=== PATIENT | female | born 2000 | race Caucasian/White ===

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

== ENCOUNTER 2020-01-23 19:26 | Emergency (ER) | payer OTHER, BC ==
[2020-01-23 19:55] VITALS: BP 107/77; PULSE 74; TEMP 98; BMI 27.4
--- NOTE | 2020-01-23 20:18 | PDOC ---
History of Present Illness - General Chief Complaint: Pain Stated Complaint: ABD PAIN Time Seen by Provider: 01/23/20 19:58 History Source: Patient - History of Present Illness Timing/Duration: reports: getting worse, intermittent Abdominal Pain Onset Location: reports: epigastric Pain Radiation: reports: no radiation Past History - Medical History Allergies/Adverse Reactions: Allergies Allergy/AdvReac Type Severity Reaction Status Date / Time No Known Allergies Allergy Verified 01/23/20 19:54 Home Medications: Ambulatory Orders Prenat 115/Iron Fum/Folic/Dss [ 19 Tablet] 1 tab PO DAILY 11/23/18 Nifedipine ER [Procardia Xl -] 30 mg PO DAILY #30 tab.er.24 12/10/18 Acetaminophen [Tylenol -] 1,000 mg PO Q6H #50 tablet 01/23/20 Ondansetron HCl [Zofran] 4 mg PO Q8H #12 tablet 01/23/20 Asthma: No Cancer: No Cardiac Disorders: No COPD: No Diabetes: No HTN: Yes (after delivery) Seizures: No Thyroid Disease: No - Reproductive History Is Patient Now?: No Therapeutic (s) & number: No - Immunization History Immunization Up to Date: Yes - Psycho-Social/Smoking History Smoking History: Never smoked Have you smoked in the past 12 months: No - Substance Abuse Hx (Audit-C & DAST Scrn) How often the patient has a drink containing alcohol: Never Score: In Men: 4 or > Positive; In Women: 3 or > Positive: 0 Screen Result (Pos requires Nsg. Audit-10AR): Negative Review of Systems - Review of Systems Constitutional: No: Chills, Fever ABD/GI: Yes: Nausea, Vomiting. No: Blood Streaked Bowels, Constipated, Diarrhea, Rectal Bleeding, Tarry Stools : No: Burning, Dysuria, Flank Pain *Physical Exam - Vital Signs Last Vital Signs Temp Pulse Resp BP Pulse Ox 98 F 74 18 107/77 98 01/23/20 19:50 01/23/20 19:50 01/23/20 19:50 01/23/20 19:50 01/23/20 19:50 - Physical Exam General Appearance: Yes: Appropriately Dressed. No: Apparent Distress HEENT: positive: Normal Voice Neck: positive: Supple Respiratory/Chest: negative: Respiratory Distress Gastrointestinal/Abdominal: positive: Normal Bowel Sounds, Tender (minimal ttp to epigastrium, no ttp to RUQ and no murpheys, no lower abd ttp), Soft. negative: Distended, Guarding, Rebound Musculoskeletal: negative: CVA Tenderness Integumentary: positive: Dry, Warm Neurologic: positive: Fully Oriented, Alert, Normal Mood/Affect Medical Decision Making - Medical Decision Making 01/23/20 20:15 19 yo F, here w/ ongoing epigastric pain. Pt reports intermittent epigastric pain x 5 months, ?brought on after eating greasy or fatty foods per pt, at times a/w n/v. Sxs lately episodes have been getting worse and re-occured yesterday. Did not seek medical care until yesterday when pt went to and was dx with "biliary colic". States she was not sent for US due to type of insurance she had so decided to come to ED. Not currently taking anything for pain. States she had "heartburn" during last but that current sxs does not feel similar to that. No change to BM, f/c or dysuria. No known h/o gallstones see exam Suspect gastritis/GERD vs biliary colic Exam only remarkable for mild ttp to epigastrium only -symptomatic control in ED -US -anticipate dc w/ GI referral 01/23/20 21:28 US read as multiple gallstones w/ slight contraction of GB....? physiologic vs chronic solis per report, no GBW edema or fluid. Pt remains well antonio and reports feeling better w/ meds. No sig ttp on rpt abd exam. Will dc w/ pain control and give very close surgery follow up. Strict return precautions given Discharge - Discharge Information Problems reviewed: Yes Clinical Impression/Diagnosis: Biliary colic Condition: Improved Disposition: HOME - Additional Discharge Information Prescriptions: Acetaminophen [Tylenol -] 1,000 mg PO Q6H #50 tablet Ondansetron HCl [Zofran] 4 mg PO Q8H #12 tablet - Follow up/Referral Referrals: Fili De Leon MD [Staff Physician] - - Patient Discharge Instructions Additional Instructions: Your ultrasound shows multiple gallstones which could be cause of chronic upper abd pain You need close follow up with surgery to discuses management Of pain acute worsens and/or you develop vomiting or fever, return to ED immediately Take tylenol as directed - Post Discharge Activity
[2020-01-23] MEDS ORDERED: ACETAMINOPHEN 500 MG TABLET (FP) PO ONE (20:19)
[2020-01-23] MEDS ORDERED: MAG HYDROX/AL HYDROX/SIMETH 30 ML UNIT-DOSE CUP PO ONE (20:19)
[2020-01-23] MEDS ORDERED: ONDANSETRON 4 MG TABLET PO ONE (20:19)
[2020-01-23] MEDS ORDERED: MAG HYDROX/AL HYDROX/SIMETH 30 ML UNIT-DOSE CUP ONE (20:26)
[2020-01-23] MEDS ORDERED: ACETAMINOPHEN 325 MG TABLET (FP) ONE (20:26)
[2020-01-23] MEDS ORDERED: ONDANSETRON *ODT* 4 MG TABLET ONE (20:26)
[2020-01-23 21:45] LABS: PH,URINE 5.5 (5.0-8.0); URINE APPEARANCE Clear; URINE BILIRUBIN Negative (NEGATIVE); URINE COLOR Yellow; URINE GLUCOSE (UA) Negative (NEGATIVE); URINE KETONE Negative (NEGATIVE); URINE LEUK ESTERASE Negative (NEGATIVE); URINE NITRITE Negative (NEGATIVE); URINE PROTEIN Negative (NEGATIVE); URINE UROBILINOGEN 0.2 mg/dL (0.2-1.0)
[2020-01-23 21:52] LABS: HCG,QUALITATIVE URINE Negative
[2020-01-23 23:43] LABS: URINE CRYSTALS CALCIUM OXALATE /hpf
[2020-01-23 23:49] LABS: EPI CELLS 13 /uL (0-25.1); HYALINE CASTS 2 /uL (0-3.1); URINE BACTERIA 217 /uL (0-1359); URINE WBC 26 /uL (0-25.8)
== END 2020-01-23 22:00 | disposition home or self-care (01) ==
LOC: JER 19:26
DX: K80.42 Calculus of bile duct with acute cholecystitis without obstruction (principal)
CPT/HCPCS: 76705-TC; 81003; 84703; 99284-25

== ENCOUNTER 2020-04-08 04:40 | Day surgery (SDC) | payer BC, OTHER ==
--- OUTSIDE RECORDS SUMMARY | 2020-03-31 08:25 | XMS ---
:2000 Author Organization [facility] Support Name Relationship Address Phone UE, UNEMPLOYED Unavailable Unavailable Unavailable UE Unavailable Unavailable Unavailable AUNTIE [place] [address] [place] [address] RAVI ARAIZA MOTHER [address] [place] [address] RAVI ARAIZA Mother [address] [place] [address] Re-disclosure Warning The records that you are about to access may contain information from federally- assisted alcohol or drug abuse programs. If such information is present, then the following federally mandated warning applies: This information has been disclosed to you from records protected by federal confidentiality rules (42 CFR part 2). The federal rules prohibit you from making any further disclosure of this information unless further disclosure is expressly permitted by the written consent of the person to whom it pertains or as otherwise permitted by 42 CFR part 2. A general authorization for the release of medical or other information is NOT sufficient for this purpose. The Federal rules restrict any use of the information to criminally investigate or prosecute any alcohol or drug abuse patient.The records that you are about to access may contain highly sensitive health information, the redisclosure of which is protected by Article 27-F of the [facility] Public Health law. If you continue you may haveaccess to information: Regarding HIV / AIDS; Provided by facilities licensed or operated by the [facility] Office of Mental Health; or Provided by the [facility] Office for People With Developmental Disabilities. If such information is present, then the following [facility] mandated warning applies: This information has been disclosed to you from confidential records which are protected by state law. State law prohibits you from making any further disclosure of this information without the specific written consent of the person to whom it pertains, or as otherwise permitted by law. Any unauthorized further disclosure in violation of state law may result in a fine or detention sentence or both. A general authorization for the release of medical or other information is NOT sufficient authorization for further disclosure. Insurance Providers Payer name Policy type Policy ID Covered Covered libertarian's Policy P andre / Coverage libertarian ID relationship to Garcia Inf ormation type garcia ROSALVA [id number] SP [id number] [facility] NON CAP OUT OF [id number] [facility]
[2020-04-07 11:10] VITALS: BMI 27.4
--- OUTSIDE RECORDS SUMMARY | 2020-04-08 04:42 | XMS ---
:2000 Author Organization [facility] Support Name Relationship Address Phone LUANN Unavailable Unavailable Unavailable UE, UNEMPLOYED Unavailable Unavailable Unavailable UE Unavailable Unavailable Unavailable AUNKATARZYNA [place] [address] RAY[place] [address] RAVI ARAIZA MOTHER [phone] [place] [address] RAVI ARAIZA Mother [address] [place] [address] Re-disclosure Warning The records that you are [...] is protected by Article 27-F of the [place] State Public Health law. If you continue you may haveaccess to information: Regarding HIV / AIDS; Provided by facilities licensed or operated by the [facility] Office of Mental Health; or Provided by the [facility] Office for People With Developmental Disabilities. If such information is present, then the following [facility] mandated warning applies: This information has been [...] law may result in a fine or alf sentence or both. A general authorization for the release of medical or other information is NOT sufficient authorization for further disclosure. Insurance Providers Payer name Policy type Policy ID Covered Covered green party's Policy P andre / Coverage green party ID relationship to Garcia Inf ormation type garcia ROSALVA [id number] SP [id number] HEALTH NON CAP BC OUT OF [id number] SP [id number] STATE BC OUT OF [id number] FA [id number] STATE Results ID Date Data Source [id number] 04/04/2020 08:50:00 AM EDT [facility] Name Value Range Interpretation Description Data Sup porting Code Source(s) Document(s ) SARS [facility] coronavirus 2 RNA This lab was ordered by [facility] and reported by [facility]. Procedure
[2020-04-08 08:26] LABS: HEMATOCRIT 39.9 % (32.4-45.2); MCH 24.4 pg (25.7-33.7); MCHC 32.5 g/dl (32.0-36.0); MEAN CELL VOLUME 75.1 fl (80-96); MEAN PLT VOLUME 8.9 fl (7.5-11.1); PLATELET COUNT 302 K/MM3 (134-434); RBC 5.31 M/mm3 (3.60-5.2); RDW 16.3 % (11.6-15.6); WHITE BLOOD COUNT 8.1 K/mm3 (4.0-10.0)
[2020-04-08 08:45] VITALS: BP 121/88; PULSE 74; TEMP 98.2
[2020-04-08 08:45] LABS: POTASSIUM 4.1 mmol/L (3.5-5.1)
[2020-04-08 08:47] LABS: CALCIUM 9.1 mg/dL (8.5-10.1)
[2020-04-08 08:48] LABS: ALBUMIN 3.9 g/dl (3.4-5.0); BLOOD UREA NITROGEN 9.1 mg/dL (7-18)
[2020-04-08 08:50] LABS: CREATININE 0.7 mg/dL (0.55-1.3)
[2020-04-08 08:52] LABS: BILIRUBIN,TOTAL 0.6 mg/dL (0.2-1); TOT PROT 7.8 g/dl (6.4-8.2)
--- NOTE | 2020-04-08 09:06 | HP ---
History & Physical Update - History History: No Change - Physical Physical: No Change - Assessment Assessment: No Change - Plan Plan: No Change (for lap solis possible open; r/b/t/a'sd/w the patient in the office and again today and informed consent obtained.)
== END 2020-04-08 09:50 | disposition home or self-care (01) ==
LOC: JASU-SURG 04:40
PROVIDERS: ATTEND Surgery
DX: Z53.8 Procedure and treatment not carried out for other reasons (principal)
CPT/HCPCS: 36415; 80053; 84702; 84703; 85027

== ENCOUNTER 2020-05-17 11:04 | Emergency (ER) | payer OTHER, BC ==
[2020-05-17 11:14] VITALS: BMI 24.7
[2020-05-17] MEDS ORDERED: SODIUM CHLORIDE 1,000 ML IV STA (12:08)
[2020-05-17 13:05] LABS: BASO % 0.3 % (0-2.0); EOS % 2.5 % (0-4.5); HEMATOCRIT 37.6 % (32.4-45.2); HEMOGLOBIN 12.1 GM/dL (10.7-15.3); LYMPH % 16.3 % (8-40); MCHC 32.2 g/dl (32.0-36.0); MEAN CELL VOLUME 74.6 fl (80-96); MEAN PLT VOLUME 8.6 fl (7.5-11.1); MONO % 5.1 % (3.8-10.2); NEUT % 75.8 % (42.8-82.8); PLATELET COUNT 327 K/MM3 (134-434); RBC 5.04 M/mm3 (3.60-5.2); WHITE BLOOD COUNT 10.8 K/mm3 (4.0-10.0)
[2020-05-17 13:14] LABS: EPI CELLS >36 /uL (0-25.1); HYALINE CASTS 4 /uL (0-3.1); URINE APPEARANCE CLOUDY; URINE BACTERIA 319 /uL (0-1359); URINE BILIRUBIN NEGATIVE (NEGATIVE); URINE COLOR YELLOW; URINE GLUCOSE (UA) NEGATIVE (NEGATIVE); URINE KETONE TRACE (NEGATIVE); URINE LEUK ESTERASE TRACE (NEGATIVE); URINE NITRITE NEGATIVE (NEGATIVE); URINE PROTEIN 1+ (NEGATIVE); URINE RBC 5 /uL (0-23.9); URINE WBC 14 /uL (0-25.8)
[2020-05-17 13:41] LABS: CHLORIDE 104 mmol/L (98-107); POTASSIUM 4.3 mmol/L (3.5-5.1); SODIUM 135 mmol/L (136-145)
[2020-05-17 13:43] LABS: CALCIUM 9.4 mg/dL (8.5-10.1)
[2020-05-17 13:44] LABS: ALBUMIN 3.6 g/dl (3.4-5.0); ANION GAP 9 MMOL/L (8-16); BLOOD UREA NITROGEN 7.2 mg/dL (7-18); CO2 23 mmol/L (21-32); GLUCOSE,RANDOM 81 mg/dL (74-106)
[2020-05-17 13:47] LABS: CREATININE 0.5 mg/dL (0.55-1.3); SGOT/AST 20 U/L (15-37)
[2020-05-17 13:49] LABS: TOT PROT 7.7 g/dl (6.4-8.2)
[2020-05-17 13:50] LABS: ALK PHOS 66 U/L (45-117)
[2020-05-17 14:06] LABS: SGPT/ALT 27 U/L (13-61)
[2020-05-17 14:08] LABS: BILIRUBIN,TOTAL 0.7 mg/dL (0.2-1)
[2020-05-17] MEDS ORDERED: METOCLOPRAMIDE HCL INJECTION 10 MG/2 ML VIAL IVPB ONE (14:30)
[2020-05-17] MEDS ORDERED: ACETAMINOPHEN 325 MG TABLET (FP) PO ONE (14:30)
[2020-05-17] MEDS ORDERED: ACETAMINOPHEN 325 MG TABLET (FP) ONE (14:33)
[2020-05-17] MEDS ORDERED: METOCLOPRAMIDE HCL INJECTION 10 MG/2 ML VIAL ONE (14:34)
[2020-05-17 15:52] VITALS: BP 100/59; PULSE 89; TEMP 98.3
== END 2020-05-17 15:52 | disposition home or self-care (01) ==
LOC: JER 11:04
PROC: 3E033GC Introduction of Other Therapeutic Substance into Peripheral Vein, Percutaneous Approach (ICD-10-PCS; principal; 2020-05-17)
PROC: 3E0337Z Introduction of Electrolytic and Water Balance Substance into Peripheral Vein, Percutaneous Approach (ICD-10-PCS; 2020-05-17)
DX: R55 Syncope and collapse (principal)
CPT/HCPCS: 36415; 80053; 81003; 84484; 84702; 85025; 87086; 87491; 87591; 93005; 93010; 99284-25

== ENCOUNTER 2020-05-20 18:10 | Emergency (ER) | payer BC, OTHER ==
[2020-05-20 18:27] VITALS: BP 126/90; PULSE 85; TEMP 97.3; BMI 25.7
[2020-05-20] MEDS ORDERED: AZITHROMYCIN 500 MG TABLET PO ONE (18:33)
[2020-05-20] MEDS ORDERED: AZITHROMYCIN 250 MG TABLET ONE (18:35)
== END 2020-05-20 18:40 | disposition home or self-care (01) ==
LOC: JER 18:10
DX: A74.9 Chlamydial infection, unspecified (principal)
CPT/HCPCS: 99284-25

== ENCOUNTER 2020-06-15 18:22 | Emergency (ER) | payer BC, OTHER ==
[2020-06-15 18:37] VITALS: BP 116/80; PULSE 80; TEMP 98.6; BMI 25.7
== END 2020-06-15 18:57 | disposition home or self-care (01) ==
LOC: JER 18:22
DX: U07.1 COVID-19 (principal)
CPT/HCPCS: 99284-25; C9803; U0003

== ENCOUNTER 2020-07-07 18:20 | Emergency (ER) | payer BC, OTHER ==
[2020-07-07 18:27] VITALS: BMI 25.7
[2020-07-07] MEDS ORDERED: SODIUM CHLORIDE 0.9% 1000 ML INFUS.BAG IV ONE (19:45)
[2020-07-07] MEDS ORDERED: METOCLOPRAMIDE HCL INJECTION 10 MG/2 ML VIAL IVPUSH ONE (19:46)
[2020-07-07] MEDS ORDERED: METOCLOPRAMIDE HCL INJECTION 10 MG/2 ML VIAL ONE (20:18)
[2020-07-07 20:36] LABS: BASO % 0.4 % (0-2.0); EOS % 4.5 % (0-4.5); HEMATOCRIT 32.9 % (32.4-45.2); HEMOGLOBIN 10.9 GM/dL (10.7-15.3); LYMPH % 23.5 % (8-40); MCH 25.2 pg (25.7-33.7); MCHC 33.1 g/dl (32.0-36.0); MEAN CELL VOLUME 76.3 fl (80-96); MEAN PLT VOLUME 9.1 fl (7.5-11.1); NEUT % 64.6 % (42.8-82.8); PLATELET COUNT 310 K/MM3 (134-434); RBC 4.31 M/mm3 (3.60-5.2); RDW 15.8 % (11.6-15.6); WHITE BLOOD COUNT 9.8 K/mm3 (4.0-10.0)
[2020-07-07 20:43] LABS: EPI CELLS 11 /uL (0-25.1); HYALINE CASTS 0 /uL (0-3.1); URINE APPEARANCE CLEAR; URINE BACTERIA 324 /uL (0-1359); URINE BILIRUBIN NEGATIVE (NEGATIVE); URINE COLOR YELLOW; URINE GLUCOSE (UA) NEGATIVE (NEGATIVE); URINE KETONE NEGATIVE (NEGATIVE); URINE LEUK ESTERASE TRACE (NEGATIVE); URINE NITRITE NEGATIVE (NEGATIVE); URINE PROTEIN NEGATIVE (NEGATIVE); URINE RBC 3 /uL (0-23.9); URINE UROBILINOGEN 0.2 mg/dL (0.2-1.0); URINE WBC 28 /uL (0-25.8)
[2020-07-07 20:50] LABS: POTASSIUM 4.2 mmol/L (3.5-5.1)
[2020-07-07 20:52] LABS: CALCIUM 9.4 mg/dL (8.5-10.1)
[2020-07-07 20:53] LABS: ALBUMIN 3.3 g/dl (3.4-5.0); BLOOD UREA NITROGEN 7.8 mg/dL (7-18)
[2020-07-07 20:56] LABS: CREATININE 0.4 mg/dL (0.55-1.3)
[2020-07-07 20:57] LABS: BILIRUBIN,TOTAL 0.3 mg/dL (0.2-1); TOT PROT 7.2 g/dl (6.4-8.2)
[2020-07-07] MEDS ORDERED: CEPHALEXIN MONOHYDRATE 500 MG CAPSULE (UD) PO ONE (21:12)
[2020-07-07 21:18] VITALS: BP 118/67; PULSE 88; TEMP 98.8
[2020-07-07] MEDS ORDERED: CEPHALEXIN MONOHYDRATE 500 MG CAPSULE (UD) ONE (21:24)
== END 2020-07-07 22:19 | disposition home or self-care (01) ==
LOC: JER 18:20
DX: O23.40 Unspecified infection of urinary tract in pregnancy, unspecified trimester (principal); Z3A.17 17 weeks gestation of pregnancy
CPT/HCPCS: 36415; 76815-TC; 80053; 81003; 84443; 84702; 85025; 86850; 86900; 86901; 87086; 87491; 87591; 99285-25

== ENCOUNTER 2020-10-21 15:08 | Emergency (ER) | payer BC, OTHER ==
[2020-10-21 15:15] VITALS: BMI 30.2
[2020-10-21 16:37] VITALS: TEMP 97.7
[2020-10-21] MEDS ORDERED: ACETAMINOPHEN 500 MG TABLET (FP) ONE (17:03)
[2020-10-21] MEDS ORDERED: ACETAMINOPHEN 500 MG TABLET (FP) PO ONE (17:15)
[2020-10-21 17:24] VITALS: BP 117/73; PULSE 77
== END 2020-10-21 17:56 | disposition home or self-care (01) ==
LOC: JER 15:08
DX: O26.893 Other specified pregnancy related conditions, third trimester (principal); R51.9 Headache, unspecified; Z3A.32 32 weeks gestation of pregnancy
CPT/HCPCS: 99284-25

== ENCOUNTER 2020-12-05 20:05 | Inpatient (IN) | payer BC, OTHER ==
[2020-12-05] MEDS ORDERED: BUTORPHANOL TARTRATE 1 MG/ML VIAL IVPB PRN (20:49)
[2020-12-05] MEDS ORDERED: PROMETHAZINE HCL 25 MG/1 ML VIAL IVPUSH ONE (20:49)
[2020-12-05] MEDS ORDERED: DINOPROSTONE 10 MG VAGINAL SUPPOSITORY VG ONE (20:51)
[2020-12-05] MEDS: ELECTROLYTE-148 SOLN 1,000 ML IV SCH (21:00)
[2020-12-05 21:17] LABS: BASO % 0.5 % (0-2.0); EOS % 2.3 % (0-4.5); HEMATOCRIT 30.3 % (32.4-45.2); HEMOGLOBIN 10.1 GM/dL (10.7-15.3); LYMPH % 19.4 % (8-40); MCH 24.3 pg (25.7-33.7); MCHC 33.2 g/dl (32.0-36.0); MEAN PLT VOLUME 9.7 fl (7.5-11.1); NEUT % 68.8 % (42.8-82.8); PLATELET COUNT 225 10^3/uL (134-434); RBC 4.16 M/mm3 (3.60-5.2); RDW 17.1 % (11.6-15.6); WHITE BLOOD COUNT 8.6 K/mm3 (4.0-10.0)
[2020-12-05 21:20] LABS: RETICULOCYTES 1.82 % (0.5-1.5)
[2020-12-05 21:26] LABS: INR 0.95 (0.83-1.09); PROTHROMBIN TIME (PATIENT) 11.5 SEC (9.7-13.0)
[2020-12-05 21:28] LABS: ACTIVATED PTT 29.3 SECONDS (25.2-36.5)
[2020-12-05 21:41] LABS: GAMMA GLUTAMYL TRANSPEPTIDASE 13 U/L (5-85)
[2020-12-05 21:45] LABS: SGOT/AST 19 U/L (15-37); SGPT/ALT 19 U/L (13-61)
[2020-12-05 21:46] LABS: BLOOD UREA NITROGEN 8.6 mg/dL (7-18)
[2020-12-05 21:49] LABS: CREATININE 0.5 mg/dL (0.55-1.3); URIC ACID 5.5 mg/dL (2.6-7.2)
[2020-12-05] MEDS ORDERED: FLUTICASONE PROP 0.05% 16 GM NASAL SPRAY NS ONE (22:19)
[2020-12-05 22:26] LABS: EPI CELLS >36 /uL (0-25.1); HYALINE CASTS 3 /uL (0-3.1); PH,URINE 5.5 (5.0-8.0); URINE APPEARANCE CLOUDY; URINE BACTERIA 838 /uL (0-1359); URINE BILIRUBIN NEGATIVE (NEGATIVE); URINE COLOR YELLOW; URINE GLUCOSE (UA) NEGATIVE (NEGATIVE); URINE KETONE NEGATIVE (NEGATIVE); URINE LEUK ESTERASE 2+ (NEGATIVE); URINE NITRITE NEGATIVE (NEGATIVE); URINE PROTEIN NEGATIVE (NEGATIVE); URINE RBC 15 /uL (0-23.9); URINE WBC 80 /uL (0-25.8)
[2020-12-05 22:32] VITALS: BMI 32.8
[2020-12-05 22:33] LABS: COCAINE, UR NEGATIVE (NEGATIVE); METHADONE, UR NEGATIVE (NEGATIVE); PHENCYCLIDINE,URINE NEGATIVE (NEGATIVE); URINE BARBITURATES NEGATIVE (NEGATIVE); URINE BENZODIAZEPINES NEGATIVE (NEGATIVE)
[2020-12-05 22:40] LABS: OPIATES, URI NEGATIVE (NEGATIVE); URINE AMPHETAMINES NEGATIVE (NEGATIVE)
[2020-12-06] MEDS ORDERED: ACETAMINOPHEN 325 MG TABLET (FP) ONE ×3 (02:21→15:04)
[2020-12-06] MEDS ORDERED: ACETAMINOPHEN 325 MG TABLET (FP) PO ONE (02:45)
[2020-12-06] MEDS: ELECTROLYTE-148 SOLN 1,000 ML IV SCH ×3 (04:40→21:20)
[2020-12-06] MEDS ORDERED: DINOPROSTONE 10 MG VAGINAL SUPPOSITORY VG ONE (08:03)
[2020-12-06] MEDS: ACETAMINOPHEN 325 MG TABLET (FP) PO PRN ×2 (08:45→15:09)
[2020-12-06] MEDS ORDERED: AMPICILLIN SODIUM 2 GM VIAL ONE (11:30)
[2020-12-06] MEDS ORDERED: OXYTOCIN 30 UNITS in 0.9% NS 30 UNIT/500 ML INFUS.BAG IVPB ONE ×2 (11:31→21:09)
[2020-12-06] MEDS: OXYTOCIN 30 UNITS in 0.9% NS 30 UNIT/500 ML INFUS.BAG IVPB SCH (11:40)
[2020-12-06] MEDS ORDERED: AMPICILLIN - 2 GM in SODIUM CHLORIDE 100 ML IVPB ONE (12:00)
[2020-12-06] MEDS ORDERED: AMPICILLIN SODIUM 1 GM VIAL ONE ×2 (15:03→20:06)
[2020-12-06] MEDS: AMPICILLIN - 1 GM in SODIUM CHLORIDE 100 ML IVPB SCH ×2 (15:10→20:00)
[2020-12-06] MEDS ORDERED: BUTORPHANOL TARTRATE 2 MG/ML VIAL ONE (22:31)
[2020-12-06] MEDS ORDERED: PROMETHAZINE HCL 25 MG/1 ML VIAL ONE (22:31)
[2020-12-07] MEDS ORDERED: AMPICILLIN SODIUM 1 GM VIAL ONE ×3 (00:04→08:14)
[2020-12-07] MEDS: AMPICILLIN - 1 GM in SODIUM CHLORIDE 100 ML IVPB SCH ×4 (04:00→11:56)
[2020-12-07] MEDS: ELECTROLYTE-148 SOLN 1,000 ML IV SCH (04:00)
[2020-12-07] MEDS ORDERED: PCA PUMP NR ONE ×2 (04:18→07:57)
[2020-12-07] MEDS ORDERED: FENTANYL/BUPIVACAINE/NS/PF - PCEA - 50 ML DISP.SYRIN EP ONE ×2 (04:19→08:13)
[2020-12-07] MEDS ORDERED: NALOXONE HCL 0.4 MG/ML VIAL IVPUSH PRN (04:58)
[2020-12-07] MEDS ORDERED: BUPIVACAINE HCL/PF 0.25% (2.5MG/ML) 10 ML VIAL ONE (05:03)
[2020-12-07] MEDS: FENTANYL/BUPIVACAINE/NS/PF - PCEA - 50 ML DISP.SYRIN EP SCH (05:25)
[2020-12-07] MEDS ORDERED: LIDOCAINE HCL/EPINEPHRINE/PF 10 ML VIAL ONE (06:41)
[2020-12-07] MEDS ORDERED: morphine SULFATE/PF 0.5 MG/ML (2cc Syringe - QUVA) ONE (08:59)
[2020-12-07] MEDS ORDERED: MIDAZOLAM HCL 2 MG/2 ML SINGLE DOSE VIAL ONE (09:40)
[2020-12-07] MEDS ORDERED: OXYTOCIN 10 UNITS/ML VIAL ONE ×2 (09:53)
[2020-12-07] MEDS ORDERED: ceFAZolin SODIUM 1 GM VIAL ONE ×2 (09:53)
[2020-12-07] MEDS ORDERED: ONDANSETRON 4 MG/2 ML VIAL IVPUSH PRN (10:11)
[2020-12-07] MEDS: OXYTOCIN 20 UNITS in 0.9% NS 20 UNIT/1,000 ML INFUS.BAG IV SCH (10:25)
[2020-12-07] MEDS ORDERED: BENZOCAINE 28 GM HEMORRHOIDAL OINTMENT RC PRN (10:27)
[2020-12-07] MEDS ORDERED: METHYLERGONOVINE MALEATE 0.2 MG/1 ML AMP IM PRN (10:27)
[2020-12-07] MEDS ORDERED: WITCH HAZEL 50% (TUCKS) 40 PAD/JAR PAD TP PRN (10:27)
[2020-12-07] MEDS ORDERED: BENZOCAINE 20% 57 GM BOTTLE TP PRN (10:27)
[2020-12-07] MEDS ORDERED: IBUPROFEN 600 MG TABLET (FP) PO PRN (10:27)
[2020-12-07] MEDS ORDERED: ACETAMINOPHEN 325 MG TABLET (FP) PO PRN (10:27)
[2020-12-07] MEDS: IBUPROFEN 800 MG/8 ML IJ IVPB PRN (11:20)
[2020-12-07] MEDS: diphenhydrAMINE HCL 25 MG CAPSULE (FP) PO PRN (15:32)
[2020-12-08] MEDS: IBUPROFEN 800 MG/8 ML IJ IVPB PRN (00:04)
[2020-12-08 08:32] LABS: HEMATOCRIT 26.1 % (32.4-45.2); HEMOGLOBIN 8.6 GM/dL (10.7-15.3); MCH 24.4 pg (25.7-33.7); MEAN CELL VOLUME 73.9 fl (80-96); MEAN PLT VOLUME 9.7 fl (7.5-11.1); PLATELET COUNT 185 10^3/uL (134-434); RBC 3.53 M/mm3 (3.60-5.2); RDW 17.4 % (11.6-15.6); WHITE BLOOD COUNT 8.8 K/mm3 (4.0-10.0)
[2020-12-08] MEDS: ACETAMINOPHEN 325 MG TABLET (FP) PO PRN ×3 (08:42→20:07)
[2020-12-08] MEDS: IBUPROFEN 600 MG TABLET (FP) PO PRN ×3 (08:42→20:08)
[2020-12-08] MEDS: SIMETHICONE 80 MG TAB.CHEW (FP) PO PRN ×2 (08:43→20:07)
[2020-12-08] MEDS ORDERED: oxyCODONE HCL 5 MG TABLET PO PRN (10:27)
[2020-12-08] MEDS ORDERED: HYDROmorphone HCL 2 MG TABLET PO PRN (10:27)
[2020-12-08] MEDS ORDERED: BISACODYL 10 MG SUPP.RECT PR PRN (10:28)
[2020-12-08] MEDS: OXYTOCIN 20 UNITS in 0.9% NS 20 UNIT/1,000 ML INFUS.BAG IV SCH (19:43)
[2020-12-08] MEDS: OXYTOCIN 30 UNITS in 0.9% NS 30 UNIT/500 ML INFUS.BAG IVPB SCH ×2 (19:43→19:44)
[2020-12-08] MEDS: FENTANYL/BUPIVACAINE/NS/PF - PCEA - 50 ML DISP.SYRIN EP SCH (19:43)
[2020-12-08] MEDS: ELECTROLYTE-148 SOLN 1,000 ML IV SCH (19:44)
[2020-12-08] MEDS: oxyCODONE HCL 5 MG TABLET PO PRN (20:08)
[2020-12-09] MEDS: IBUPROFEN 600 MG TABLET (FP) PO PRN ×3 (07:58→23:25)
[2020-12-09] MEDS: ACETAMINOPHEN 325 MG TABLET (FP) PO PRN ×3 (07:59→23:25)
[2020-12-09] MEDS: SIMETHICONE 80 MG TAB.CHEW (FP) PO PRN ×2 (08:04→23:26)
[2020-12-09] MEDS: diphenhydrAMINE HCL 25 MG CAPSULE (FP) PO PRN ×2 (14:48→23:31)
[2020-12-09] MEDS ORDERED: SENNOSIDES/DOCUSATE COMBO (SENNA PLUS) TABLET (UD) PO PRN (22:00)
[2020-12-09] MEDS: oxyCODONE HCL 5 MG TABLET PO PRN (23:24)
[2020-12-10 08:16] LABS: HEMATOCRIT 26.9 % (32.4-45.2); HEMOGLOBIN 8.8 GM/dL (10.7-15.3); MCHC 32.6 g/dl (32.0-36.0); MEAN CELL VOLUME 73.5 fl (80-96); MEAN PLT VOLUME 9.1 fl (7.5-11.1); PLATELET COUNT 251 10^3/uL (134-434); RBC 3.66 M/mm3 (3.60-5.2); RDW 17.6 % (11.6-15.6); WHITE BLOOD COUNT 8.1 K/mm3 (4.0-10.0)
[2020-12-10 10:06] VITALS: BP 137/86; PULSE 99; TEMP 98.4
== END 2020-12-10 13:30 | disposition home or self-care (01) | DRG 788 ==
LOC: JLDR 20:05 → J3W 12-07 12:10
PROVIDERS: ADMIT Obstetrics & Gynecology; ATTEND Obstetrics & Gynecology
PROC: 3E0P7VZ Introduction of Hormone into Female Reproductive, Via Natural or Artificial Opening (ICD-10-PCS; 2020-12-05)
PROC: 10D00Z1 Extraction of Products of Conception, Low, Open Approach (ICD-10-PCS; principal; 2020-12-07)
DX: O62.9 Abnormality of forces of labor, unspecified (principal); O36.5930 Maternal care for other known or suspected poor fetal growth, third trimester, not applicable or unspecified; O13.3 Gestational [pregnancy-induced] hypertension without significant proteinuria, third trimester; O90.81 Anemia of the puerperium; Z3A.38 38 weeks gestation of pregnancy; Z37.0 Single live birth
CPT/HCPCS: 36415; 80048; 80307; 81003; 82977; 83010; 84450; 84460; 84550; 85025; 85027; 85032; 85045; 85610; 85730; 86780; 86850; 86900; 86901

== ENCOUNTER 2021-03-28 18:14 | Emergency (ER) | payer BC, OTHER ==
[2021-03-28 18:30] VITALS: BP 138/87; PULSE 75; TEMP 98; BMI 29.7
[2021-03-28 19:07] LABS: BASO % 0.7 % (0-2.0); EOS % 5.6 % (0-4.5); HEMATOCRIT 35.9 % (32.4-45.2); LYMPH % 35.1 % (8-40); MCH 23.7 pg (25.7-33.7); MCHC 33.4 g/dl (32.0-36.0); NEUT % 51.6 % (42.8-82.8); PLATELET COUNT 354 10^3/uL (134-434); RBC 5.05 M/mm3 (3.60-5.2); RDW 18.3 % (11.6-15.6); WHITE BLOOD COUNT 9.6 K/mm3 (4.0-10.0)
[2021-03-28 19:11] LABS: PH,URINE 7.5 (5.0-8.0); URINE APPEARANCE TURBID; URINE BILIRUBIN NEGATIVE (NEGATIVE); URINE COLOR YELLOW; URINE GLUCOSE (UA) NEGATIVE (NEGATIVE); URINE KETONE NEGATIVE (NEGATIVE); URINE LEUK ESTERASE NEGATIVE (NEGATIVE); URINE NITRITE NEGATIVE (NEGATIVE); URINE PROTEIN NEGATIVE (NEGATIVE)
[2021-03-28 19:14] LABS: HCG,QUALITATIVE URINE Negative
[2021-03-28 19:30] LABS: ALBUMIN 3.7 g/dl (3.4-5.0); BLOOD UREA NITROGEN 13.6 mg/dL (7-18); CALCIUM 9.2 mg/dL (8.5-10.1)
[2021-03-28 19:34] LABS: CREATININE 0.8 mg/dL (0.55-1.3)
[2021-03-28 19:35] LABS: BILIRUBIN,TOTAL 0.2 mg/dL (0.2-1); TOT PROT 8.2 g/dl (6.4-8.2)
== END 2021-03-28 20:30 | disposition home or self-care (01) ==
LOC: JERFT 18:14
DX: M54.2 Cervicalgia (principal)
CPT/HCPCS: 36415; 80053; 81003; 84443; 84703; 85025; 87086; 99283-25

== ENCOUNTER 2021-11-28 13:54 | Emergency (ER) | payer BC, OTHER ==
[2021-11-28 14:39] VITALS: BP 93/60; PULSE 83; TEMP 98.3; BMI 26.9
[2021-11-28] MEDS ORDERED: KETOROLAC TROMETHAMINE 30 MG/1 ML VIAL IVPUSH ONE (17:27)
[2021-11-28] MEDS ORDERED: ONDANSETRON 4 MG/2 ML VIAL IVPUSH ONE (17:27)
[2021-11-28] MEDS ORDERED: SODIUM CHLORIDE 0.9% 500 ML INFUS.BAG IV ONE (17:27)
[2021-11-28] MEDS ORDERED: ONDANSETRON 4 MG/2 ML VIAL ONE (18:42)
[2021-11-28] MEDS ORDERED: KETOROLAC TROMETHAMINE 30 MG/1 ML VIAL ONE (18:42)
[2021-11-28 19:48] LABS: HEMATOCRIT 41.3 % (32.4-45.2); HEMOGLOBIN 13.1 GM/dL (10.7-15.3); MCHC 31.8 g/dl (32.0-36.0); MEAN CELL VOLUME 75.7 fl (80-96); MEAN PLT VOLUME 8.8 fl (7.5-11.1); PLATELET COUNT 373 10^3/uL (134-434); RBC 5.46 M/mm3 (3.60-5.2); RDW 16.5 % (11.6-15.6); WHITE BLOOD COUNT 12.5 K/mm3 (4.0-10.0)
[2021-11-28 19:54] LABS: URINE APPEARANCE TURBID; URINE BILIRUBIN NEGATIVE (NEGATIVE); URINE COLOR YELLOW; URINE GLUCOSE (UA) NEGATIVE (NEGATIVE); URINE KETONE TRACE (NEGATIVE); URINE LEUK ESTERASE NEGATIVE (NEGATIVE); URINE NITRITE NEGATIVE (NEGATIVE); URINE PROTEIN NEGATIVE (NEGATIVE); URINE UROBILINOGEN 0.2 mg/dL (0.2-1.0)
[2021-11-28 19:56] LABS: INR 1.08 (0.83-1.09); PROTHROMBIN TIME (PATIENT) 12.4 SEC (9.7-13.0)
[2021-11-28 19:56] LABS: HCG,QUALITATIVE URINE Negative
[2021-11-28 19:59] LABS: ACTIVATED PTT 37.2 SECONDS (25.2-36.5)
[2021-11-28 20:17] LABS: CALCIUM 9.9 mg/dL (8.5-10.1)
[2021-11-28 20:18] LABS: ALBUMIN 4.2 g/dl (3.4-5.0)
[2021-11-28 20:21] LABS: CREATININE 0.6 mg/dL (0.55-1.3)
[2021-11-28 20:22] LABS: BILIRUBIN,TOTAL 0.3 mg/dL (0.2-1); TOT PROT 7.8 g/dl (6.4-8.2)
[2021-11-28] MEDS ORDERED: ONDANSETRON 4 MG TABLET PO ONE (20:56)
[2021-11-28] MEDS ORDERED: IBUPROFEN 600 MG TABLET (FP) PO ONE ×2 (20:56)
[2021-11-28] MEDS ORDERED: ONDANSETRON *ODT* 4 MG TABLET ONE (20:56)
== END 2021-11-28 21:05 | disposition home or self-care (01) ==
LOC: JER 13:54
PROC: 3E033GC Introduction of Other Therapeutic Substance into Peripheral Vein, Percutaneous Approach (ICD-10-PCS; principal; 2021-11-28)
DX: K80.20 Calculus of gallbladder without cholecystitis without obstruction (principal)
CPT/HCPCS: 36415; 76705-TC; 80053; 81003; 83690; 84703; 85027; 85610; 85730; 86850; 86900; 86901; 99284-25

== ENCOUNTER 2023-02-10 18:53 | Emergency (ER) | payer OTHER ==
[2023-02-10 19:03] VITALS: BMI 26.5
[2023-02-10] MEDS ORDERED: SODIUM CHLORIDE 1,000 ML IV STA (19:42)
[2023-02-10] MEDS ORDERED: FAMOTIDINE 20 MG/50 ML IVPB 20 MG/50 ML MG IVPB ONE ×2 (19:42→20:26)
[2023-02-10] MEDS ORDERED: ACETAMINOPHEN 1000 MG/100 ML BAG IVPB ONE (19:42)
[2023-02-10] MEDS ORDERED: ONDANSETRON 4 MG/2 ML VIAL IVPUSH ONE (19:42)
[2023-02-10] MEDS ORDERED: ACETAMINOPHEN INJECTION 100 ML IVPB ONE (20:26)
[2023-02-10] MEDS ORDERED: ONDANSETRON 4 MG/2 ML VIAL ONE (20:26)
[2023-02-10 20:51] LABS: BASO % 0.4 % (0-2.0); EOS % 0.4 % (0-4.5); HEMATOCRIT 40.1 % (32.4-45.2); HEMOGLOBIN 13.5 GM/dL (10.7-15.3); LYMPH % 10.3 % (8-40); MCHC 33.7 g/dl (32.0-36.0); MEAN CELL VOLUME 74.3 fl (80-96); MEAN PLT VOLUME 8.4 fl (7.5-11.1); NEUT % 83.9 % (42.8-82.8); PLATELET COUNT 326 10^3/uL (134-434); RDW 15.8 % (11.6-15.6); WHITE BLOOD COUNT 9.7 K/mm3 (4.0-10.0)
[2023-02-10 21:03] LABS: INR 1.17 (0.83-1.09); PROTHROMBIN TIME (PATIENT) 13.5 SEC (9.7-13.0)
[2023-02-10 21:05] LABS: ACTIVATED PTT 36.6 SECONDS (25.2-36.5)
[2023-02-10 21:08] LABS: POTASSIUM 3.9 mmol/L (3.5-5.1)
[2023-02-10 21:12] LABS: ALBUMIN 4.1 g/dl (3.4-5.0); BLOOD UREA NITROGEN 7.9 mg/dL (7-18); CALCIUM 9.2 mg/dL (8.5-10.1); MAGNESIUM 1.9 mg/dL (1.8-2.4)
[2023-02-10 21:15] LABS: CREATININE 0.7 mg/dL (0.55-1.3)
[2023-02-10 21:17] LABS: BILIRUBIN,TOTAL 0.6 mg/dL (0.2-1); TOT PROT 7.9 g/dl (6.4-8.2)
[2023-02-11 01:09] VITALS: BP 116/55; PULSE 81; RESP 16; TEMP 98.1
== END 2023-02-11 02:02 | disposition home or self-care (01) ==
LOC: JER 18:53
PROC: 3E033GC Introduction of Other Therapeutic Substance into Peripheral Vein, Percutaneous Approach (ICD-10-PCS; principal; 2023-02-10)
PROC: 3E033NZ Introduction of Analgesics, Hypnotics, Sedatives into Peripheral Vein, Percutaneous Approach (ICD-10-PCS; 2023-02-10)
PROC: 3E033GC Introduction of Other Therapeutic Substance into Peripheral Vein, Percutaneous Approach (ICD-10-PCS; 2023-02-10)
DX: R07.9 Chest pain, unspecified (principal); R55 Syncope and collapse; R11.10 Vomiting, unspecified; R42 Dizziness and giddiness; R10.30 Lower abdominal pain, unspecified; R00.0 Tachycardia, unspecified
CPT/HCPCS: 36415; 71046-TC-FY; 71275-TC; 80053; 83690; 83735; 84484; 84702; 85025; 85379; 85610; 85730; 93005; 93010; 99285-25; Q9967

== ENCOUNTER 2023-06-08 17:26 | Emergency (ER) | payer OTHER ==
[2023-06-08 17:31] VITALS: BP 125/73; RESP 18; TEMP 98.2; BMI 24.7
[2023-06-08] MEDS ORDERED: ONDANSETRON 4 MG/2 ML VIAL IVPUSH ONE (18:20)
[2023-06-08] MEDS ORDERED: ACETAMINOPHEN 325 MG TABLET (FP) PO ONE (18:20)
[2023-06-08] MEDS ORDERED: SODIUM CHLORIDE 0.9% 500 ML INFUS.BAG IV ONE (18:20)
[2023-06-08] MEDS ORDERED: ACETAMINOPHEN 325 MG TABLET (FP) ONE (18:28)
[2023-06-08] MEDS ORDERED: ONDANSETRON 4 MG/2 ML VIAL ONE (18:29)
[2023-06-08 18:43] LABS: BASO % 0.7 % (0-2.0); EOS % 7.4 % (0-4.5); HEMATOCRIT 40.8 % (32.4-45.2); HEMOGLOBIN 13.4 GM/dL (10.7-15.3); LYMPH % 26.3 % (8-40); MCHC 32.9 g/dl (32.0-36.0); MEAN CELL VOLUME 75.8 fl (80-96); MEAN PLT VOLUME 8.2 fl (7.5-11.1); MONO % 7.3 % (3.8-10.2); NEUT % 58.3 % (42.8-82.8); PLATELET COUNT 384 10^3/uL (134-434); RBC 5.38 M/mm3 (3.60-5.2); RDW 16.4 % (11.6-15.6); WHITE BLOOD COUNT 8.8 K/mm3 (4.0-10.0)
[2023-06-08 19:55] LABS: CALCIUM 9.6 mg/dL (8.5-10.1)
[2023-06-08 19:56] LABS: ALBUMIN 4.2 g/dl (3.4-5.0)
[2023-06-08 19:59] LABS: CREATININE 0.8 mg/dL (0.55-1.3); MAGNESIUM 2.2 mg/dL (1.8-2.4)
[2023-06-08 20:17] LABS: BILIRUBIN,TOTAL 0.4 mg/dL (0.2-1)
[2023-06-08 20:40] VITALS: PULSE 60
== END 2023-06-08 21:12 | disposition home or self-care (01) ==
LOC: JER 17:26
PROC: 3E033GC Introduction of Other Therapeutic Substance into Peripheral Vein, Percutaneous Approach (ICD-10-PCS; principal; 2023-06-08)
DX: R11.2 Nausea with vomiting, unspecified (principal); M79.10 Myalgia, unspecified site; R68.83 Chills (without fever); R10.30 Lower abdominal pain, unspecified; R19.7 Diarrhea, unspecified
CPT/HCPCS: 36415; 80053; 83690; 83735; 84703; 85025; 99284-25

== ENCOUNTER 2023-09-18 06:01 | Emergency (ER) | payer OTHER ==
[2023-09-18 06:11] VITALS: RESP 18; BMI 21.2
[2023-09-18] MEDS ORDERED: ACETAMINOPHEN INJECTION 100 ML IVPB ONE (07:36)
[2023-09-18] MEDS ORDERED: ONDANSETRON 4 MG/2 ML VIAL ONE (07:36)
[2023-09-18] MEDS: LACTATED RINGERS SOLUTION 1000 ML INFUS.BAG IV ONE (08:10)
[2023-09-18] MEDS: ONDANSETRON *ODT* 4 MG TABLET SL ONE (08:11)
[2023-09-18] MEDS: ACETAMINOPHEN 1000 MG/100 ML BAG IVPB ONE (08:11)
[2023-09-18] MEDS ORDERED: FAMOTIDINE 20 MG/50 ML IVPB 20 MG/50 ML MG IVPB ONE (08:16)
[2023-09-18] MEDS: FAMOTIDINE 20 MG/50 ML IVPB 20 MG/50 ML MG IVPB ONE (08:24)
[2023-09-18 08:26] LABS: URINE APPEARANCE CLEAR; URINE BILIRUBIN NEGATIVE (NEGATIVE); URINE COLOR YELLOW; URINE GLUCOSE (UA) NEGATIVE (NEGATIVE); URINE KETONE NEGATIVE (NEGATIVE); URINE LEUK ESTERASE NEGATIVE (NEGATIVE); URINE NITRITE NEGATIVE (NEGATIVE); URINE PROTEIN NEGATIVE (NEGATIVE); URINE UROBILINOGEN 0.2 mg/dL (0.2-1.0)
[2023-09-18 08:41] LABS: POTASSIUM 3.7 mmol/L (3.5-5.1)
[2023-09-18 08:43] LABS: ALBUMIN 3.6 g/dl (3.4-5.0); BASO % 0.6 % (0-2.0); BLOOD UREA NITROGEN 10.8 mg/dL (7-18); CALCIUM 9.4 mg/dL (8.5-10.1); EOS % 4.7 % (0-4.5); HEMOGLOBIN 12.7 GM/dL (10.7-15.3); LYMPH % 12.4 % (8-40); MCH 24.7 pg (25.7-33.7); MCHC 32.4 g/dl (32.0-36.0); MEAN CELL VOLUME 76.2 fl (80-96); MEAN PLT VOLUME 8.7 fl (7.5-11.1); MONO % 5.6 % (3.8-10.2); NEUT % 76.7 % (42.8-82.8); PLATELET COUNT 299 10^3/uL (134-434); RBC 5.12 M/mm3 (3.60-5.2); RDW 16.1 % (11.6-15.6); WHITE BLOOD COUNT 13.9 K/mm3 (4.0-10.0)
[2023-09-18 08:46] LABS: CREATININE 0.7 mg/dL (0.55-1.3)
[2023-09-18 08:48] LABS: BILIRUBIN,TOTAL 0.4 mg/dL (0.2-1); TOT PROT 7.2 g/dl (6.4-8.2)
[2023-09-18 09:37] VITALS: BP 107/70; PULSE 76; TEMP 98.1
[2023-09-18 15:00] LABS: MAGNESIUM 1.8 mg/dL (1.8-2.4)
== END 2023-09-18 10:04 | disposition home or self-care (01) ==
LOC: JER 06:01
PROC: 3E033GC Introduction of Other Therapeutic Substance into Peripheral Vein, Percutaneous Approach (ICD-10-PCS; principal; 2023-09-18)
PROC: 3E030NZ Introduction of Analgesics, Hypnotics, Sedatives into Peripheral Vein, Open Approach (ICD-10-PCS; 2023-09-18)
DX: R11.2 Nausea with vomiting, unspecified (principal); R10.33 Periumbilical pain; R07.9 Chest pain, unspecified; R42 Dizziness and giddiness
CPT/HCPCS: 36415; 80053; 81003; 83690; 83735; 84703; 85025; 87086; 93005; 93010; 96365; 96375; 99284-25; J0131; Q0162

== ENCOUNTER 2023-09-26 14:40 | Emergency (ER) | payer OTHER ==
[2023-09-26 14:45] VITALS: BMI 24.0
[2023-09-26] MEDS ORDERED: ACETAMINOPHEN 500 MG TABLET (FP) ONE (15:56)
[2023-09-26 15:59] LABS: BASO % 0.6 % (0-2.0); EOS % 11.4 % (0-4.5); HEMATOCRIT 39.3 % (32.4-45.2); LYMPH % 27.7 % (8-40); MCH 25.1 pg (25.7-33.7); MEAN PLT VOLUME 8.4 fl (7.5-11.1); MONO % 7.7 % (3.8-10.2); NEUT % 52.6 % (42.8-82.8); PLATELET COUNT 333 10^3/uL (134-434); RBC 5.17 M/mm3 (3.60-5.2); RDW 16.5 % (11.6-15.6); WHITE BLOOD COUNT 8.3 K/mm3 (4.0-10.0)
[2023-09-26 16:05] LABS: EPI CELLS >36 /uL (0-25.1); HYALINE CASTS 2 /uL (0-3.1); PH,URINE 5.5 (5.0-8.0); URINE APPEARANCE CLEAR; URINE BACTERIA 261 /uL (0-1359); URINE BILIRUBIN NEGATIVE (NEGATIVE); URINE COLOR DK YELLOW; URINE GLUCOSE (UA) NEGATIVE (NEGATIVE); URINE KETONE TRACE (NEGATIVE); URINE LEUK ESTERASE TRACE (NEGATIVE); URINE NITRITE NEGATIVE (NEGATIVE); URINE PROTEIN NEGATIVE (NEGATIVE); URINE RBC 7 /uL (0-23.9); URINE WBC 14 /uL (0-25.8)
[2023-09-26 16:06] LABS: HCG,QUALITATIVE URINE Negative
[2023-09-26] MEDS: ACETAMINOPHEN 500 MG TABLET (FP) PO ONE (16:06)
[2023-09-26 16:18] LABS: POTASSIUM 3.7 mmol/L (3.5-5.1)
[2023-09-26 16:20] LABS: CALCIUM 9.2 mg/dL (8.5-10.1)
[2023-09-26 16:21] LABS: ALBUMIN 3.8 g/dl (3.4-5.0); BLOOD UREA NITROGEN 6.4 mg/dL (7-18)
[2023-09-26 16:24] LABS: CREATININE 0.6 mg/dL (0.55-1.3)
[2023-09-26 16:25] LABS: TOT PROT 7.4 g/dl (6.4-8.2)
[2023-09-26 16:26] LABS: BILIRUBIN,TOTAL 0.5 mg/dL (0.2-1)
[2023-09-26 18:25] VITALS: BP 100/58; PULSE 58; RESP 16; TEMP 98.2
== END 2023-09-26 19:03 | disposition home or self-care (01) ==
LOC: JER 14:40
DX: N30.00 Acute cystitis without hematuria (principal); R42 Dizziness and giddiness; R07.89 Other chest pain; R06.02 Shortness of breath; R53.1 Weakness; R35.0 Frequency of micturition; R39.15 Urgency of urination
CPT/HCPCS: 36415; 70450-TC; 71275-TC; 80053; 81003; 84484; 84703; 85025; 85379; 87086; 93005; 93010; 99285-25; Q9967

== ENCOUNTER 2024-01-03 19:14 | Emergency (ER) | payer BC, OTHER ==
[2024-01-03 19:18] VITALS: BP 116/75; PULSE 103; RESP 20; TEMP 98.2; BMI 23.9
[2024-01-03] MEDS ORDERED: ACETAMINOPHEN 325 MG TABLET (FP) ONE (19:22)
[2024-01-03] MEDS: ACETAMINOPHEN 500 MG TABLET (FP) PO ONE (19:25)
== END 2024-01-03 21:44 | disposition home or self-care (01) ==
LOC: JER 19:14 → JERFT 19:14
DX: S93.492A Sprain of other ligament of left ankle, initial encounter (principal); V00.841A Fall from standing electric scooter, initial encounter; Y92.481 Parking lot as the place of occurrence of the external cause
CPT/HCPCS: 73610-TC-LT-FY; 73630-TC-LT; 99283-25

== ENCOUNTER 2024-05-01 23:12 | Emergency (ER) | payer BC, OTHER ==
[2024-05-01 23:19] VITALS: BP 127/85; PULSE 70; RESP 16; TEMP 98.3; BMI 20.3
[2024-05-02] MEDS ORDERED: ACETAMINOPHEN 325 MG TABLET (FP) ONE (00:21)
[2024-05-02] MEDS ORDERED: IBUPROFEN 400 MG TABLET (FP) PO ONE (00:22)
[2024-05-02] MEDS: IBUPROFEN 400 MG TABLET (FP) PO ONE (00:28)
[2024-05-02] MEDS: ACETAMINOPHEN 500 MG TABLET (FP) PO ONE (00:29)
[2024-05-02] MEDS ORDERED: LIDOCAINE VISCOUS 2% ORAL/TOP 15 ML UNIT-DOSE CUP ONE ×2 (00:30→01:29)
[2024-05-02] MEDS: LIDOCAINE VISCOUS 2% ORAL/TOP 15 ML UNIT-DOSE CUP MM ONE ×2 (00:40→01:45)
[2024-05-02] MEDS ORDERED: AMOXICILLIN 500 MG CAPSULE (FP) ONE (01:29)
[2024-05-02] MEDS: AMOXICILLIN 500 MG CAPSULE (FP) PO ONE (01:37)
== END 2024-05-02 01:48 | disposition home or self-care (01) ==
LOC: JER 23:12
DX: K08.89 Other specified disorders of teeth and supporting structures (principal)
CPT/HCPCS: 99283-25

== ENCOUNTER 2025-01-18 13:34 | Emergency (ER) | payer BC, OTHER ==
[2025-01-18 13:46] VITALS: BP 119/70; PULSE 94; RESP 18; TEMP 98; BMI 24.7
== END 2025-01-18 14:52 | disposition home or self-care (01) ==
LOC: JER 13:34 → JERFT 13:34
DX: R21 Rash and other nonspecific skin eruption (principal); L53.9 Erythematous condition, unspecified
CPT/HCPCS: 99283-25

== ENCOUNTER 2025-02-21 20:47 | Emergency (ER) | payer BC, OTHER ==
[2025-02-21 20:55] VITALS: PULSE 79; TEMP 97.9; BMI 24.3
[2025-02-21 22:08] LABS: ABSOLUTE IMMATURE GRANULOCYTES 0.02 x10^3/uL (0.0-0.031); BASOPHILS # 0.06 x10^3/uL (0.01-0.08); EOSINOPHIL % 9.7 % (0.7-5.8); EOSINOPHILS # 0.85 x10^3/uL (0.04-0.36); MCHC 32.9 g/dl (32.2-35.5); MEAN CELL VOLUME 75.7 fl (79.4-94.8); MEAN PLT VOLUME 10.3 fl (9.4-12.3); MONOCYTE # 0.63 x10^3/uL (0.24-0.86); MONOCYTE % 7.2 % (4.7-12.5); RDW 15.2 % (12.1-16.5)
[2025-02-21 22:16] LABS: INR 1.13 (0.83-1.09); PROTHROMBIN TIME (PATIENT) 12.3 SEC (9.7-13.0)
[2025-02-21 22:18] VITALS: BP 116/95; RESP 18
[2025-02-21 22:18] LABS: ACTIVATED PTT 37.0 SECONDS (25.2-36.5)
[2025-02-21 22:27] LABS: GLUCOSE,RANDOM 95.0 mg/dL (74-106)
[2025-02-21 22:28] LABS: TOT PROT 7.9 g/dl (6.4-8.2)
[2025-02-21 22:29] LABS: CO2 18.0 mmol/L (21-32)
[2025-02-21 22:30] LABS: ALK PHOS 58.0 U/L (40-150)
[2025-02-21 22:33] LABS: CREATININE 0.69 mg/dL (0.55-1.3); SGOT/AST 24.0 U/L (5-34); SGPT/ALT 24.0 U/L (0-55)
[2025-02-21 22:52] LABS: HCV DIAGNOSTIC IN-HOUSE W/RFLX NON-REACTIVE (NONREACTIVE)
[2025-02-21 23:03] LABS: HIV INTERPRETATION PRESUMPTIVE POSITIVE (NEGATIVE)
== END 2025-02-21 23:05 | disposition home or self-care (01) ==
LOC: JER 20:47
DX: N93.9 Abnormal uterine and vaginal bleeding, unspecified (principal)
CPT/HCPCS: 36415; 80053; 84703; 85025; 85610; 85730; 86803; 86850; 86900; 86901; 87389; 99283-25